=== PATIENT | female | born 1960 | race Caucasian/White ===

== ENCOUNTER → 2016-04-22 | Outpatient (CLI) | payer OTHER ==
[~2016-04-22] MED LIST: ADV250INH INH; ALBU83IN INH; LYRI100C10 PO; TRAM50TA2 PO; ZOLO100T PO
--- NOTE | 2016-04-22 21:52 | REP ---
Clinical: Follow up pulmonary nodule. Comparison: Multiple prior examinations dating through 12/19/2009. Findings: The lung lugo are well-aerated and relatively symmetric. Small chronic stable ground-glass opacities are again identified, unchanged, and likely represent small areas of scarring. No significant soft tissue pulmonary nodule, area of consolidation, mass or pleural effusion is appreciated. No pneumothorax. Tracheobronchial tree is patent. Mediastinum and cardiac silhouette are within normal limits and stable. There is no evidence for cardiomegaly or pericardial effusion. Surrounding musculoskeletal structures demonstrate age-related type changes. Impression: Small scattered chronic areas of scarring unchanged compared to prior examinations dated 06/24/2009. No new acute mediastinal or pleuroparenchymal process appreciated. Signed by Josafat Gunter MD 04/22/2016 09:43 P
== END ==
LOC: M RAD 11:05
PROVIDERS: ATTEND Internal Medicine Pulmonary Disease
DX: R91.8 Other nonspecific abnormal finding of lung field (principal)

== ENCOUNTER 2017-03-31 20:48 | Emergency (ER) | payer OTHER ==
[2017-03-31 21:38] LABS: MEAN CORPUSCULAR HEMOGLOBIN 27.4 pg (27.0-33.0); MEAN CORPUSCULAR HGB CONC 31.8 g/dl (32.0-36.5); MEAN CORPUSCULAR VOLUME 86.1 fl (80.0-96.0); PLATELET COUNT, AUTOMATED 290 10^3/uL (150-450); RED CELL DISTRIBUTION WIDTH 16.9 % (11.5-14.5); WHITE BLOOD COUNT 6.3 10^3/uL (4.0-10.0)
[2017-03-31 21:52] LABS: METHADONE URINE NEGATIVE (NEGATIVE)
[2017-03-31 22:03] LABS: ALBUMIN 3.2 GM/DL (3.2-5.2); ALBUMIN/GLOBULIN RATIO 1.07 (1.00-1.93); ALKALINE PHOSPHATASE 78 U/L (45-117); ALT/SGPT 16 U/L (12-78); ANION GAP 11 MEQ/L (8-16); AST/SGOT 12 U/L (7-37); BILIRUBIN,DIRECT < 0.1 MG/DL (0.0-0.2); BILIRUBIN,TOTAL 0.1 MG/DL (0.2-1.0); BLOOD UREA NITROGEN 10 MG/DL (7-18); CARBON DIOXIDE LEVEL 24 MEQ/L (21-32); CHLORIDE LEVEL 99 MEQ/L (98-107); CREATININE FOR GFR 0.72 MG/DL (0.55-1.02); GLOMERULAR FILTRATION RATE > 60.0 (>51); GLUCOSE, FASTING 104 MG/DL (70-105); POTASSIUM SERUM 3.3 MEQ/L (3.5-5.1); SODIUM LEVEL 134 MEQ/L (136-145); TOTAL PROTEIN 6.2 GM/DL (6.4-8.2)
== END 2017-03-31 22:43 | disposition home or self-care (01) ==
LOC: M ED 20:48
DX: Z60.9 Problem related to social environment, unspecified (principal); F10.929 Alcohol use, unspecified with intoxication, unspecified; Z63.0 Problems in relationship with spouse or partner; J45.909 Unspecified asthma, uncomplicated; F41.9 Anxiety disorder, unspecified; K21.9 Gastro-esophageal reflux disease without esophagitis; F17.210 Nicotine dependence, cigarettes, uncomplicated
CPT/HCPCS: G0480

== ENCOUNTER 2017-04-23 13:08 | Inpatient (IN) | payer OTHER ==
[2017-04-23 14:52] LABS: HEMATOCRIT 34.5 % (36.0-47.0); HEMOGLOBIN 10.9 g/dl (12.0-16.0); MEAN CORPUSCULAR HEMOGLOBIN 26.2 pg (27.0-33.0); MEAN CORPUSCULAR HGB CONC 31.6 g/dl (32.0-36.5); MEAN CORPUSCULAR VOLUME 82.9 fl (80.0-96.0); PLATELET COUNT, AUTOMATED 332 10^3/uL (150-450); RED BLOOD COUNT 4.16 10^6/uL (4.00-5.40); RED CELL DISTRIBUTION WIDTH 17.8 % (11.5-14.5); WHITE BLOOD COUNT 12.6 10^3/uL (4.0-10.0)
[2017-04-23] MEDS: clonazePAM 0.5 MG TAB PO (15:10)
[2017-04-23 15:32] LABS: ACETAMINOPHEN LEVEL < 2.0 UG/ML (10.0-30.0); ALBUMIN 3.8 GM/DL (3.2-5.2); ALBUMIN/GLOBULIN RATIO 1.06 (1.00-1.93); ALKALINE PHOSPHATASE 55 U/L (45-117); ALT/SGPT 16 U/L (12-78); ANION GAP 10 MEQ/L (8-16); AST/SGOT 11 U/L (7-37); BILIRUBIN,DIRECT 0.1 MG/DL (0.0-0.2); BILIRUBIN,TOTAL 0.3 MG/DL (0.2-1.0); BLOOD UREA NITROGEN 7 MG/DL (7-18); CALCIUM LEVEL 9.1 MG/DL (8.5-10.1); CARBON DIOXIDE LEVEL 24 MEQ/L (21-32); CHLORIDE LEVEL 104 MEQ/L (98-107); CREATININE FOR GFR 0.62 MG/DL (0.55-1.02); ETHYL ALCOHOL (ETHANOL) < 0.003 % (0.000-0.010); GLOMERULAR FILTRATION RATE > 60.0 (>51); GLUCOSE, FASTING 89 MG/DL (70-105); POTASSIUM SERUM 3.8 MEQ/L (3.5-5.1); SALICYLATE LEVEL 4.7 MG/DL (5.0-30.0); SODIUM LEVEL 138 MEQ/L (136-145); TOTAL PROTEIN 7.4 GM/DL (6.4-8.2)
[2017-04-23 15:35] LABS: AMPHETAMINES LEVEL URINE NEGATIVE (NEGATIVE); BARBITURATES URINE NEGATIVE (NEGATIVE); BENZODIAZEPINES URINE NEGATIVE (NEGATIVE); CANNABINOIDS URINE NEGATIVE (NEGATIVE); COCAINE METABOLITE URINE NEGATIVE (NEGATIVE); METHADONE URINE NEGATIVE (NEGATIVE); OPIATES URINE NEGATIVE (NEGATIVE); PHENCYCLIDINE URINE NEGATIVE (NEGATIVE)
[2017-04-23] MEDS ORDERED: ACETAMINOPHEN TAB 650MG DOSE (2X325MG) PO (16:00)
[2017-04-23] MEDS ORDERED: MOM 30ML SUSPENSION UDC PO (16:00)
[2017-04-23] MEDS ORDERED: MAALOX 30 ML SUSP *UDC PO (16:00)
[2017-04-23] MEDS: NICOTINE 21MG/24HR 1 EA TRANSDERMAL TD (17:10)
[2017-04-23] MEDS ORDERED: traMADol 50 MG TAB PO (18:00)
[2017-04-23] MEDS ORDERED: tiZANidine 4 MG TAB PO (18:00)
[2017-04-23] MEDS ORDERED: ALBUTEROL 90 MCG/ACT 8GM HFA INHALER INH (18:00)
[2017-04-23] MEDS ORDERED: IBUPROFEN 400 MG TAB PO (18:15)
[2017-04-23] MEDS: traZODone 50 MG TAB PO (20:10)
[2017-04-23] MEDS: PREGABALIN 100 MG CAP (LYRICA) PO (20:11)
[2017-04-23] MEDS: ADVAIR HFA 115/21MCG INHALER INH (20:11)
[2017-04-24] MEDS: DULoxetine 30 MG CAP (CYMBALTA) PO (08:24)
[2017-04-24] MEDS: SERTRALINE 100 MG TAB PO (08:24)
[2017-04-24] MEDS: PREGABALIN 100 MG CAP (LYRICA) PO ×2 (08:24→20:32)
[2017-04-24] MEDS: OMEPRAZOLE 20 MG CAP PO (08:24)
[2017-04-24] MEDS: NICOTINE 21MG/24HR 1 EA TRANSDERMAL TD (08:25)
[2017-04-24] MEDS: ADVAIR HFA 115/21MCG INHALER INH ×2 (08:25→20:32)
[2017-04-24] MEDS: LORazepam 0.5 MG TAB PO ×2 (08:39→13:25)
[2017-04-24] MEDS: traZODone 50 MG TAB PO (20:31)
[2017-04-25 07:27] LABS: HEMATOCRIT 35.9 % (36.0-47.0); HEMOGLOBIN 11.2 g/dl (12.0-16.0); MEAN CORPUSCULAR HGB CONC 31.2 g/dl (32.0-36.5); MEAN CORPUSCULAR VOLUME 86.5 fl (80.0-96.0); PLATELET COUNT, AUTOMATED 299 10^3/uL (150-450); RED BLOOD COUNT 4.15 10^6/uL (4.00-5.40); WHITE BLOOD COUNT 7.1 10^3/uL (4.0-10.0)
[2017-04-25] MEDS: PREGABALIN 100 MG CAP (LYRICA) PO ×2 (08:27→20:39)
[2017-04-25] MEDS: OMEPRAZOLE 20 MG CAP PO (08:27)
[2017-04-25] MEDS: ADVAIR HFA 115/21MCG INHALER INH ×2 (08:27→20:40)
[2017-04-25] MEDS: DULoxetine 30 MG CAP (CYMBALTA) PO (08:27)
[2017-04-25] MEDS: NICOTINE 21MG/24HR 1 EA TRANSDERMAL TD (08:28)
[2017-04-25] MEDS: LORazepam 0.5 MG TAB PO ×2 (08:51→14:30)
[2017-04-25] MEDS: traZODone 50 MG TAB PO (20:39)
[2017-04-26] MEDS: PREGABALIN 100 MG CAP (LYRICA) PO ×2 (08:21→20:38)
[2017-04-26] MEDS: ADVAIR HFA 115/21MCG INHALER INH ×2 (08:21→20:38)
[2017-04-26] MEDS: DULoxetine 30 MG CAP (CYMBALTA) PO (08:21)
[2017-04-26] MEDS: hydrOXYzine 25 MG TAB PO (08:21)
[2017-04-26] MEDS: NICOTINE 21MG/24HR 1 EA TRANSDERMAL TD (08:22)
[2017-04-26] MEDS: OMEPRAZOLE 20 MG CAP PO (08:22)
[2017-04-26] MEDS: LORazepam 0.5 MG TAB PO (12:12)
[2017-04-26] MEDS: traZODone 50 MG TAB PO (20:40)
[2017-04-27] MEDS: DULoxetine 30 MG CAP (CYMBALTA) PO (08:25)
[2017-04-27] MEDS: OMEPRAZOLE 20 MG CAP PO (08:25)
[2017-04-27] MEDS: hydrOXYzine 25 MG TAB PO (08:25)
[2017-04-27] MEDS: PREGABALIN 100 MG CAP (LYRICA) PO ×2 (08:25→20:17)
[2017-04-27] MEDS: ADVAIR HFA 115/21MCG INHALER INH ×2 (08:25→20:17)
[2017-04-27] MEDS: NICOTINE 21MG/24HR 1 EA TRANSDERMAL TD (08:27)
[2017-04-27] MEDS: LORazepam 0.5 MG TAB PO (12:28)
[2017-04-27] MEDS: traZODone 50 MG TAB PO (20:17)
[2017-04-28] MEDS: PREGABALIN 100 MG CAP (LYRICA) PO ×2 (08:10→20:55)
[2017-04-28] MEDS: ADVAIR HFA 115/21MCG INHALER INH ×2 (08:10→20:57)
[2017-04-28] MEDS: DULoxetine 30 MG CAP (CYMBALTA) PO (08:10)
[2017-04-28] MEDS: OMEPRAZOLE 20 MG CAP PO (08:10)
[2017-04-28] MEDS: NICOTINE 21MG/24HR 1 EA TRANSDERMAL TD (08:11)
[2017-04-28] MEDS: hydrOXYzine 25 MG TAB PO (09:22)
[2017-04-28] MEDS: LORazepam 0.5 MG TAB PO (14:26)
[2017-04-28] MEDS: traZODone 50 MG TAB PO (20:56)
[2017-04-29] MEDS: NICOTINE 21MG/24HR 1 EA TRANSDERMAL TD (08:07)
[2017-04-29] MEDS: DULoxetine 30 MG CAP (CYMBALTA) PO (08:08)
[2017-04-29] MEDS: PREGABALIN 100 MG CAP (LYRICA) PO (08:08)
[2017-04-29] MEDS: LORazepam 0.5 MG TAB PO (08:08)
[2017-04-29] MEDS: OMEPRAZOLE 20 MG CAP PO (08:08)
[2017-04-29] MEDS: ADVAIR HFA 115/21MCG INHALER INH (08:13)
[2017-04-29] MEDS: hydrOXYzine 25 MG TAB PO (12:52)
== END 2017-04-29 13:45 | disposition home or self-care (01) | DRG 885 ==
LOC: M ED 13:08 → M ED INP 15:57 → M PSY 16:40
DX: F33.2 Major depressive disorder, recurrent severe without psychotic features (principal); R45.851 Suicidal ideations; F43.22 Adjustment disorder with anxiety; K21.9 Gastro-esophageal reflux disease without esophagitis; J44.9 Chronic obstructive pulmonary disease, unspecified; M54.2 Cervicalgia; M54.5 Low back pain; G43.909 Migraine, unspecified, not intractable, without status migrainosus; I73.9 Peripheral vascular disease, unspecified; F17.200 Nicotine dependence, unspecified, uncomplicated; D72.829 Elevated white blood cell count, unspecified; Z79.899 Other long term (current) drug therapy

== ENCOUNTER 2017-06-09 22:27 | Inpatient (IN) | payer OTHER ==
[2017-06-10 00:58] LABS: HEMATOCRIT 29.9 % (36.0-47.0); HEMOGLOBIN 9.5 g/dl (12.0-16.0); MEAN CORPUSCULAR HEMOGLOBIN 25.3 pg (27.0-33.0); MEAN CORPUSCULAR HGB CONC 31.8 g/dl (32.0-36.5); MEAN CORPUSCULAR VOLUME 79.5 fl (80.0-96.0); PLATELET COUNT, AUTOMATED 341 10^3/uL (150-450); RED BLOOD COUNT 3.76 10^6/uL (4.00-5.40); RED CELL DISTRIBUTION WIDTH 19.1 % (11.5-14.5)
[2017-06-10 01:16] LABS: ACETAMINOPHEN LEVEL < 2.0 UG/ML (10.0-30.0); ALBUMIN 3.2 GM/DL (3.2-5.2); ALBUMIN/GLOBULIN RATIO 1.07 (1.00-1.93); ALKALINE PHOSPHATASE 49 U/L (45-117); ALT/SGPT 14 U/L (12-78); ANION GAP 6 MEQ/L (8-16); AST/SGOT 11 U/L (7-37); BILIRUBIN,DIRECT < 0.1 MG/DL (0.0-0.2); BILIRUBIN,TOTAL 0.3 MG/DL (0.2-1.0); BLOOD UREA NITROGEN 12 MG/DL (7-18); CALCIUM LEVEL 8.5 MG/DL (8.5-10.1); CARBON DIOXIDE LEVEL 30 MEQ/L (21-32); CHLORIDE LEVEL 106 MEQ/L (98-107); CREATININE FOR GFR 0.57 MG/DL (0.55-1.30); ETHYL ALCOHOL (ETHANOL) < 0.003 % (0.000-0.010); GLOMERULAR FILTRATION RATE > 60.0 (>51); GLUCOSE, FASTING 82 MG/DL (70-100); SALICYLATE LEVEL 3.7 MG/DL (5.0-30.0); SODIUM LEVEL 142 MEQ/L (136-145); TOTAL PROTEIN 6.2 GM/DL (6.4-8.2)
[2017-06-10 01:17] LABS: AMPHETAMINES LEVEL URINE NEGATIVE (NEGATIVE); BARBITURATES URINE NEGATIVE (NEGATIVE); BENZODIAZEPINES URINE POSITIVE (NEGATIVE); CANNABINOIDS URINE NEGATIVE (NEGATIVE); COCAINE METABOLITE URINE NEGATIVE (NEGATIVE); METHADONE URINE NEGATIVE (NEGATIVE); OPIATES URINE NEGATIVE (NEGATIVE); PHENCYCLIDINE URINE NEGATIVE (NEGATIVE)
[2017-06-10] MEDS ORDERED: MOM 30ML SUSPENSION UDC PO (01:30)
[2017-06-10] MEDS ORDERED: MAALOX 30 ML SUSP *UDC PO (01:30)
[2017-06-10] MEDS ORDERED: NICOTINE 21MG/24HR 1 EA TRANSDERMAL TD (02:30)
[2017-06-10] MEDS: SERTRALINE HCL 25 MG TABLET PO (08:51)
[2017-06-10] MEDS: DULoxetine 30 MG CAP (CYMBALTA) PO (09:21)
[2017-06-10] MEDS ORDERED: tiZANidine 4 MG TAB PO (09:30)
[2017-06-10] MEDS ORDERED: traMADol 50 MG TAB PO (09:30)
[2017-06-10] MEDS ORDERED: ALBUTEROL 90 MCG/ACT 8GM HFA INHALER INH (09:30)
[2017-06-10] MEDS: PREGABALIN 100 MG CAP (LYRICA) PO ×2 (10:11→21:09)
[2017-06-10] MEDS: OMEPRAZOLE 20 MG CAP PO (10:11)
[2017-06-10] MEDS: CYANOCOBALAMIN 500 MCG TAB PO (10:11)
[2017-06-10 11:48] LABS: FOLATE 13.4 NG/ML (>5.4); TOTAL 25(OH) VITAMIN D 53.7 NG/ML (30.0-100.0); VITAMIN B12 LEVEL 809 PG/ML (247-911)
[2017-06-10 12:13] LABS: FERRITIN 5 NG/ML (8-252); IRON (FE) 17 UG/DL (50-170); PERCENT SATURATION 3.8 % (13.2-45.0); TOTAL IRON BINDING CAPACITY 447 UG/DL (250-450)
[2017-06-10] MEDS: traZODone 50 MG TAB PO (21:09)
[2017-06-11 06:51] LABS: HEMOGLOBIN 11.2 g/dl (12.0-16.0); MEAN CORPUSCULAR HGB CONC 31.1 g/dl (32.0-36.5); MEAN CORPUSCULAR VOLUME 80.4 fl (80.0-96.0); PLATELET COUNT, AUTOMATED 441 10^3/uL (150-450); RED BLOOD COUNT 4.48 10^6/uL (4.00-5.40); RED CELL DISTRIBUTION WIDTH 19.1 % (11.5-14.5); WHITE BLOOD COUNT 6.8 10^3/uL (4.0-10.0)
[2017-06-11] MEDS: CYANOCOBALAMIN 500 MCG TAB PO (08:21)
[2017-06-11] MEDS: PREGABALIN 100 MG CAP (LYRICA) PO ×2 (08:21→20:31)
[2017-06-11] MEDS: DULoxetine 30 MG CAP (CYMBALTA) PO (08:22)
[2017-06-11] MEDS: OMEPRAZOLE 20 MG CAP PO (08:22)
[2017-06-11] MEDS: ACETAMINOPHEN TAB 650MG DOSE (2X325MG) PO (11:58)
[2017-06-11] MEDS: traZODone 50 MG TAB PO (20:31)
[2017-06-12] MEDS: PREGABALIN 100 MG CAP (LYRICA) PO (08:05)
[2017-06-12] MEDS: OMEPRAZOLE 20 MG CAP PO (08:05)
[2017-06-12] MEDS: CYANOCOBALAMIN 500 MCG TAB PO (08:05)
[2017-06-12] MEDS: DULoxetine 30 MG CAP (CYMBALTA) PO (08:05)
== END 2017-06-12 13:50 | disposition home or self-care (01) | DRG 882 ==
LOC: M ED INP 06-10 01:17 → M PSY 06-10 02:00 → M ED 22:27
DX: F43.23 Adjustment disorder with mixed anxiety and depressed mood (principal); K21.9 Gastro-esophageal reflux disease without esophagitis; F17.210 Nicotine dependence, cigarettes, uncomplicated; M54.2 Cervicalgia; M54.5 Low back pain; G62.9 Polyneuropathy, unspecified; J44.9 Chronic obstructive pulmonary disease, unspecified; D64.9 Anemia, unspecified; E55.9 Vitamin D deficiency, unspecified; G43.909 Migraine, unspecified, not intractable, without status migrainosus; Z79.899 Other long term (current) drug therapy; Z91.5 Personal history of self-harm; Z98.51 Tubal ligation status

== ENCOUNTER → 2021-07-02 | Outpatient (CLI) | payer OTHER ==
[~2021-07-02] MED LIST changes: +ADVA115A; +ADVA115A INH; +CHAN1PAK11; +CLON0.5T2; +CYAN100049 PO; +DULO1CAP5 PO; +DULO30CA9 PO; +GRX1OIN; +HYDR50CA2 PO; +IBUP200T46 PO; -LYRI100C10 PO; +LYRI200C PO; +OMEP1CAP73; +OMEP40CA4 PO; +PREG100CA PO; +PREG50CA PO; +PROAAER10 INH; +SERT-138; +SPIR1CAP; +SUMA100T2 PO; +TIZA10TA PO; +TIZANIDINE; +TRAZ-252 PO; +VIST50CA PO; +VITA50005 PO; +XANA0.5T PO; +ZANA4TAB PO
== END ==
LOC: M RAD 08:42
PROVIDERS: ATTEND Family Medicine
DX: R06.00 Dyspnea, unspecified (principal); F17.200 Nicotine dependence, unspecified, uncomplicated

== ENCOUNTER → 2023-07-04 | Outpatient (CLI) | payer OTHER ==
[~2023-07-04] MED LIST changes: +ALBU2.5V10 INH; +ALBU8.5H INH; -ALBU83IN INH; +ROPI1TAB73 PO; +SERT25TA21 PO; +STIO1AER INH; +ZONI50CA11 PO
== END ==
LOC: M RAD 12:28
PROVIDERS: ATTEND Family Medicine
DX: F17.210 Nicotine dependence, cigarettes, uncomplicated (principal); Z87.891 Personal history of nicotine dependence

== ENCOUNTER → 2023-08-26 | Outpatient (CLI) | payer OTHER | LOC: M SOG 08:01 | PROVIDERS: ATTEND Physician Assistant | DX: M18.12 Unilateral primary osteoarthritis of first carpometacarpal joint, left hand (principal) ==

== ENCOUNTER → 2024-07-21 | Outpatient (CLI) | payer OTHER ==
[~2024-07-21] MED LIST changes: -ADV250INH INH; +ADVA1AER9 INH
== END ==
LOC: M CARPUL 08:37
PROVIDERS: ATTEND Internal Medicine Pulmonary Disease
DX: R01.1 Cardiac murmur, unspecified (principal); I35.8 Other nonrheumatic aortic valve disorders

== ENCOUNTER → 2024-07-23 | Outpatient (CLI) | payer OTHER | LOC: M RAD 09:35 | PROVIDERS: ATTEND Internal Medicine Pulmonary Disease | DX: Z12.2 Encounter for screening for malignant neoplasm of respiratory organs (principal); Z87.891 Personal history of nicotine dependence; R91.8 Other nonspecific abnormal finding of lung field; K44.9 Diaphragmatic hernia without obstruction or gangrene; J44.9 Chronic obstructive pulmonary disease, unspecified ==

== ENCOUNTER → 2024-08-03 | Outpatient (REF) | payer OTHER ==
[~2024-08-03] MED LIST changes: +PREG-35 PO; -PREG100CA PO; -PREG50CA PO; +PREG50CA87 PO
== END ==
LOC: M LAB REF 13:05
PROVIDERS: ATTEND Internal Medicine Pulmonary Disease
DX: J43.1 Panlobular emphysema (principal)